=== PATIENT | male | born 1980 | race Hispanic/Latino ===

== ENCOUNTER 2017-06-11 07:19 | Emergency (ER) | payer SELFPAY ==
[~2017-06-11] VITALS: Ht 190.5 cm; Wt 102.1 kg
== END 2017-06-11 08:28 | disposition home or self-care (01) ==
LOC: ER 07:19
DX: M54.42 Lumbago with sciatica, left side (principal); Y93.89 Activity, other specified; Y92.008 Other place in unspecified non-institutional (private) residence as the place of occurrence of the external cause
CPT/HCPCS: 99283

== ENCOUNTER 2018-08-02 04:18 | Emergency (ER) | payer SELFPAY ==
[~2018-08-02] VITALS: Ht 190.5 cm; Wt 103.1 kg
[2018-08-02 05:18] VITALS: BP 114/78
== END 2018-08-02 05:15 | disposition home or self-care (01) ==
LOC: FSED 04:18
DX: J10.1 Influenza due to other identified influenza virus with other respiratory manifestations (principal)
CPT/HCPCS: 87400; 99283